=== PATIENT | male | born 2000 | race Two or more races ===

== ENCOUNTER 2024-02-17 11:25 | Emergency (ER) | payer MEDICAID ==
[~2024-02-17] VITALS: Ht 180.3 cm; Wt 72.5 kg
[2024-02-17 11:56] VITALS: O2SAT 100
[2024-02-17] MEDS ORDERED: BENZ1LOZ73 MT (12:28)
[2024-02-17] MEDS ORDERED: IBUP-2029 MT (12:28)
[2024-02-17] MEDS ORDERED: TRIA5PAS DT (12:28)
[2024-02-17] MEDS: IBUPROFEN 600MG TABLET PO ONE (12:37)
[2024-02-17 12:40] VITALS: BP 118/80; PULSE 72; RESP 14; TEMP 36.89184; O2SAT 99
== END 2024-02-17 12:41 | disposition home or self-care (01) ==
LOC: ER 11:25
DX: J02.9 Acute pharyngitis, unspecified (principal); K12.0 Recurrent oral aphthae
CPT/HCPCS: 99283